=== PATIENT | male | born 1980 ===

== ENCOUNTER → 2018-05-30 | Day surgery (SDC) | payer SELFPAY ==
[2018-05-22 09:37] VITALS: BMI 30.4
[~2018-05-30] MED LIST: Bacitracin 500 Units/gm Oint Foilpak UD ONE; Bupivacaine 0.25% 20 ML INJ IJ ONE; HYDROmorphone 0.5 mg/0.5 ml ISec IVP PRN; Lactated Ringer's 1,000 ML IV ONE; Lactated Ringer's 1,000 ML IV SCH; Lidocaine Hydrochloride 5 ML INJ ONE; Midazolam 2 MG/2 ML VIAL ONE; Propofol 10 mg/ml Inj (20 ML) ONE
[2018-05-30] MEDS: ceFAZolin 1 gm in NS 1 GM/100 ML BAG IVPB ONE ×2 (12:13→12:20)
--- NOTE | 2018-05-30 13:30 | PCM.SURG1 ---
Surgeon's Initial Post Op Note - Surgeon's Notes Surgeon: juan Type of Anesthesia: General IV Anesthesia Administered By: Philip Pre-Operative Diagnosis: phimosis. Operative Findings: phimosis Post-Operative Diagnosis: phimosis Operation Performed: circumcision Specimen/Specimens Removed: penile foreskin Estimated Blood Loss: EBL {In ML}: 1 Blood Products Given: N/A Drains Used: No Drains Post-Op Condition: Good Date of Surgery/Procedure: 05/30/18 Time of Surgery/Procedure: 13:48
--- NOTE | 2018-05-30 13:52 | PCM.SURG1 ---
Surgeon's Initial Post Op Note - Surgeon's Notes Surgeon: juan Manager Of Training: none Type of Anesthesia: General IV Anesthesia Administered By: Philip Pre-Operative Diagnosis: phimosis Operative Findings: phimosis Post-Operative Diagnosis: phimosis Operation Performed: circumcision Specimen/Specimens Removed: penile foreskin Estimated Blood Loss: EBL {In ML}: 1 Blood Products Given: N/A Drains Used: No Drains Post-Op Condition: Good Date of Surgery/Procedure: 05/30/18 Time of Surgery/Procedure: 13:50
[2018-05-30 17:22] VITALS: BP 111/74; PULSE 64; RESP 16; TEMP 97.9; O2SAT 99
--- NOTE | 2018-05-31 03:20 | OP ---
PROCEDURE DATE: 05/30/2018 PREOPERATIVE DIAGNOSIS: Phimosis. POSTOPERATIVE DIAGNOSIS: Phimosis. OPERATION: Circumcision. SURGEON: Timothy Faith MD GROSS FINDINGS: Short frenulum, phimosis. The glans penis and meatus are normal. TECHNIQUE: This patient was placed in supine position. The external genitalia were prepped and draped in the usual sterile fashion. Dorsal and ventral slit incisions were performed. Two flaps of skin and mucosa were developed. The two flaps were excised. Bleeders were thoroughly fulgurated. Some bleeders were clamped and ligated with 3-0 chromic. After this was accomplished, the mucosa and the skin were reapproximated with interrupted stitches of 3-0 chromic. The short frenulum was incised. The base of the frenulum was fulgurated, and stitches of 4-0 chromic were placed to control bleeding. No bleeding was present at the end of the procedure. Bacitracin ointments were applied and the dressing was applied. The patient withstood the procedure well and returned to recovery room in satisfactory condition. Timothy Faith MD
== END | disposition home or self-care (01) ==
LOC: C.SDS 10:20
PROVIDERS: ATTEND Urology
DX: N47.1 Phimosis (principal); N39.0 Urinary tract infection, site not specified
CPT/HCPCS: 54161; 88304; J0690; J1170; J2250; J2704; J3010; J7120